=== PATIENT | female | born 1980 | race American Indian/Alaskan Native ===

== ENCOUNTER 2016-08-19 18:51 | Emergency (ER) | payer OTHER ==
--- NOTE | 2016-08-23 14:52 | OBHP ---
Datetime: 08/19/2016 20:21 IP Adm Impression: Term, intrauterine IP Admit Plan: Observation/Evaluation; Discharge home Admit Comment, IP Provider: 35 y/o @ 37.0 weeks presents complaining of lower abdominal pain. R eports pain started at 1am on 08/19 without any inciting event. Pain was is 6/10, intermittent, and o f crampy character. Denies sexual activity/changes in diet/urinary symptoms. Denies VB/LOF/CTX and re ports +FM. No other complaints. PMD: Jonah Mejia POBHx: 2 NSVDs, FT, uncomplicated. 1 TAB, uncomplicated : most done in , O-, reciveved Rho [facility]ana at 29 weeks PMHx: none Meds: Ferrous Sulfate, PNVs PsurgHx: none ALL: NKDA Social: denies ETOH, drugs, tobacco abuse A/P: 35 y/o @ 37.0 weeks IUP for labor evaluation. -no active labor -reactive NST -Dr. Lovett notified by Dr. Lopes -case discussed and pt seen with Dr. Moses Caldwell MD PGY1 @ 20:35 OB Hospitalist note.I saw and examined this pt. Agree with PGY1 note MAHNDO...Dr Mendoza notified Pelvic Type - PN: Adequate Extremities - PN: Normal Abdomen - PN: Normal Back - PN: Normal Breast - PN: Normal Lungs - PN: Normal Heart - PN: Normal Thyroid - PN: Normal Neurologic - PN: Normal HEENT - PN: Normal General - PN: Normal Presentation-Admit: Vertex FHR - Baseline A Provider: 139 Comments, ACOG Physical Exam: ROS: 12 points reviewed, found to be negative. Denies fever/chills, he adaches, visual disturbances, CP/SOB, N/V/D/C, urinary symptoms, numbness/tingling. IP Hx Assessment: The History has been Reviewed and is Current EGA AdmitDate IP: 37.0 Vital Signs Provider: Reviewed; Within Normal Limits IP Chief Complaint: Maternal discomfort NICHD Variability Prov Fetus A: Moderate 6-25bpm NICHD Accel Fetus A IP Provider: 15X15 FHR Category Provider Fetus A: Category I NICHD Decel Fetus A IP Provider: None Dilatation, Provider: closed Effacement, Provider: thick Station, Provider: high Genitourinary Exam: Normal DTRs - PN: Normal
== END 2016-08-19 20:25 | disposition home or self-care (01) ==
LOC: H.EROB2 18:51
DX: O47.1 False labor at or after 37 completed weeks of gestation (principal); Z3A.37 37 weeks gestation of pregnancy